=== PATIENT | female | born 1970 | race Two or more races ===

== ENCOUNTER 2016-10-03 09:09 | Emergency (ER) | payer SELFPAY ==
[2016-10-03] MEDS ORDERED: Albuterol/Ipratropium 3.0-0.5 MG/3 ML Neb Soln NEB ONE (09:23)
[2016-10-03] MEDS ORDERED: Sodium Chloride 0.9% 2.5 ML Syringe FLUSH PRN (09:23)
[2016-10-03] MEDS ORDERED: methylPREDNISolone Sodium Succinate 125 MG/2 ML SDV IVPUSH ONE (09:23)
[2016-10-03] MEDS ORDERED: Sodium Chloride 0.9% 10 ML Syringe FLUSH PRN (09:23)
[2016-10-03] MEDS ORDERED: Sodium Chloride 0.9% 1,000 ML IV ONE (09:23)
--- NOTE | 2016-10-03 09:26 | EDM.PDOC ---
ED HPI GENERAL MEDICAL PROBLEM - General Chief Complaint: Respiratory Problem Stated Complaint: SOB Time Seen by Provider: 10/03/16 09:19 - History of Present Illness INITIAL COMMENTS - FREE TEXT/NARRATIVE: HISTORY AND PHYSICAL: History of present illness: Patient is a 46-year-old female with a known history of asthma who says that she 's been having shortness of breath and wheezing for the last 1 week. She has had a cough occasionally productive of some phlegm which is not yellow-green or bloody. She has had no fevers vomiting or diarrhea and intermittently will have some chest discomfort with her breathing. She uses a nebulizer as well as an inhaler and came in today because that didn't seem to work. Her last prednisone use was 7 months ago and she says she has not had an admission to the hospital as an adult. Patient denies and says she gets her periods every month and has no cardiac history. She has no leg pain or swelling. Review of systems: As per history of present illness and below otherwise all systems reviewed and negative. Past medical history: As per history of present illness and as reviewed below otherwise noncontributory. Surgical history: As per history of present illness and as reviewed below otherwise noncontributory. Social history: No reported history of drug or alcohol abuse. Family history: As per history of present illness and as reviewed below otherwise noncontributory. Physical exam: Gen.: Well-developed well-nourished female who is speaking clearly in the ED without breathlessness and vital signs of the note by me HEENT: Atraumatic, normocephalic, pupils reactive, negative for conjunctival pallor or scleral icterus, mucous membranes moist, throat clear, neck supple, nontender, trachea midline. Lungs: Diffuse wheezing bilaterally in all thacker with some minimal abdominal breathing but no intercostal muscle use or sensory muscle use, breath sounds equal bilaterally, chest nontender. Heart: S1S2, regular, negative for clicks, rubs, or JVD. Abdomen: Soft, nondistended, nontender. Negative for masses or hepatosplenomegaly. NABS Pelvis: Stable nontender. Genitourinary: Deferred. Rectal: Deferred. Extremities: Atraumatic, negative for cords or calf pain. Neurovascular unremarkable. No pedal edema or leg asymmetry Neuro: Awake, alert, oriented. Cranial nerves II through XII unremarkable. Cerebellum unremarkable. Motor and sensory unremarkable throughout. Exam nonfocal. Diagnostics: EKG chest x-ray CBC CMP Therapeutics: IV O2 monitor IV fluids duo neb Solu-Medrol Patient is moving air much better with only a fine expiratory wheeze and she feels better. She says she does not have a history of seasonal allergies and I have discussed with her elevated white cell count with the eosinophilic shift. I 've also discussed his lab tests with Dr. Hernández. I will advise close follow-up in the clinic and I will put her on a course of antibiotics along with prednisone and regular inhaler use. The patient will be given a spacer. Advised her on reasons to return to the ER. I've also advised that she take Claritin [id number] Impression: Acute asthma exacerbation with leukocytosis and eosinophilia Definitive disposition and diagnosis as appropriate pending reevaluation and review of above. Upper Back Pain Score (Numeric/FACES): 7 - Related Data Allergies Allergy/AdvReac Type Severity Reaction Status Date / Time No Known Allergies Allergy Verified 10/03/16 09:25 Home Meds: Home Meds Albuterol Sulfate [Proair Hfa] 10/03/16 [History] Albuterol [Proventil Neb Soln] 10/03/16 [History] ED ROS GENERAL - Review of Systems Review Of Systems: ROS reveals no pertinent complaints other than HPI. ED EXAM, GENERAL - Physical Exam Exam: See Below (See dictation) Course - Vital Signs Last Recorded V/S: Last Vital Signs Temp 36.9 C 10/03/16 09:12 Pulse 89 10/03/16 09:12 Resp 24 H 10/03/16 09:12 BP 153/83 H 10/03/16 09:12 Pulse Ox 98 10/03/16 09:12 - Orders/Labs/Meds Orders: Active Orders 24 hr Category Date Time Status Cardiac Monitoring [RC] . DIRECTED Care 10/03/16 09:23 Active EKG Documentation Completion [RC] STAT Care 10/03/16 09:23 Active Oxygen Therapy, ED [RC] ASDIRECTED Care 10/03/16 09:23 Active Pulse Oximetry [RC] ASDIRECTED Care 10/03/16 09:23 Active RT Aerosol Therapy [RC] ASDIRECTED Care 10/03/16 09:23 Active Sodium Chloride 0.9% [Saline Flush] Med 10/03/16 09:23 Active 10 ml FLUSH ASDIRECTED PRN Sodium Chloride 0.9% [Saline Flush] Med 10/03/16 09:23 Active 2.5 ml FLUSH ASDIRECTED PRN Saline Lock Insert [OM.PC] Stat Oth 10/03/16 09:23 Ordered Medication Orders Sodium Chloride (Saline Flush) 10 ml FLUSH ASDIRECTED PRN PRN Reason: Keep Vein Open Sodium Chloride (Saline Flush) 2.5 ml FLUSH ASDIRECTED PRN PRN Reason: Keep Vein Open Labs: Laboratory Tests 10/03/16 10/03/16 Range/Units 09:30 09:30 WBC 18.92 H (4.0-11.0) K/uL RBC 5.04 (4.30-5.90) M/uL Hgb 11.9 L (12.0-16.0) g/dL Hct 36.9 (36.0-46.0) % MCV 73.2 L (80.0-98.0) fL MCH 23.6 L (27.0-32.0) pg MCHC 32.2 (31.0-37.0) g/dL RDW Std Deviation 39.8 (28.0-62.0) fl RDW Coeff of Herb 15 (11.0-15.0) % Plt Count 347 (150-400) K/uL MPV 10.10 (7.40-12.00) fL Neut % (Auto) 47.2 L (48.0-80.0) % Lymph % (Auto) 25.8 (16.0-40.0) % Ballard % (Auto) 5.1 (0.0-15.0) % Eos % (Auto) 21.5 H (0.0-7.0) % Baso % (Auto) 0.4 (0.0-1.5) % Neut # (Auto) 8.9 H (1.4-5.7) K/uL Lymph # (Auto) 4.9 H (0.6-2.4) K/uL Ballard # (Auto) 1.0 H (0.0-0.8) K/uL Eos # (Auto) 4.1 H (0.0-0.7) K/uL Baso # (Auto) 0.1 (0.0-0.1) K/uL Nucleated RBC % 0.0 /100WBC Nucleated RBCs # 0 K/uL Sodium 139 (136-146) mmol/L Potassium 3.6 (3.5-5.1) mmol/L Chloride 108 (98-110) mmol/L Carbon Dioxide 22 (21-31) mmol/L BUN 13 (6.0-23.0) mg/dL Creatinine 0.6 (0.6-1.5) mg/dL Est Cr Clr Drug Dosing 85.94 mL/min Estimated GFR (MDRD) > 60.0 ml/min Glucose 113 H (60-110) mg/dL Calcium 9.0 (8.8-10.8) mg/dL Total Bilirubin 0.3 (0.1-1.5) mg/dL AST 27 (5-40) IU/L ALT 31 (8-54) IU/L Alkaline Phosphatase 89 (40-150) Total Protein 6.8 (6.0-8.0) g/dL Albumin 3.4 L (3.5-5.0) g/dL Globulin 3.4 (2.0-3.5) g/dL Albumin/Globulin Ratio 1.0 L (1.3-2.8) Meds: Medications Generic Name Dose Route Start Last Admin Trade Name Epifanio PRN Reason Stop Dose Admin Sodium Chloride 10 ml 10/03/16 09:23 Saline Flush FLUSH ASDIRECTED PRN Keep Vein Open Sodium Chloride 2.5 ml 10/03/16 09:23 Saline Flush FLUSH ASDIRECTED PRN Keep Vein Open Discontinued Medications Generic Name Dose Route Start Last Admin Trade Name Epifanio PRN Reason Stop Dose Admin Albuterol/Ipratropium 3 ml 10/03/16 09:23 10/03/16 09:36 Duoneb 3.0-0.5 Mg/3 Ml NEB 10/03/16 09:24 3 ml ONETIME ONE Administration Sodium Chloride 1,000 mls @ 999 mls/hr 10/03/16 09:23 10/03/16 10:19 Normal Saline IV 10/03/16 10:23 999 mls/hr STAT ONE Administration Methylprednisolone Sodium Succinate 125 mg 10/03/16 09:23 10/03/16 09:56 Solu-Medrol IVPUSH 10/03/16 09:24 125 mg ONETIME ONE Administration Departure - Departure Time of Disposition: 10:50 Disposition: Home, Self-Care 01 Condition: Good Clinical Impression: Acute asthma exacerbation - Discharge Information Forms: ED Department Discharge Additional Instructions: The following information is given to patients seen in the emergency department who are being discharged to home. This information is to outline your options for follow-up care. We provide all patients seen in our emergency department with a follow-up referral. The need for follow-up, as well as the timing and circumstances, are variable depending upon the specifics of your emergency department visit. If you don't have a primary care physician on staff, we will provide you with a referral. We always advise you to contact your personal physician following an emergency department visit to inform them of the circumstance of the visit and for follow-up with them and/or the need for any referrals to a consulting specialist. The emergency department will also refer you to a specialist when appropriate. This referral assures that you have the opportunity for followup care with a specialist. All of these measure are taken in an effort to provide you with optimal care, which includes your followup. Under all circumstances we always encourage you to contact your private physician who remains a resource for coordinating your care. When calling for followup care, please make the office aware that this follow-up is from your recent emergency room visit. If for any reason you are refused follow-up, please contact the [facility] emergency department at and ask to speak to the emergency department charge nurse. [facility] Primary care- [place] [address] Please push hydration as we discussed and call for a follow-up clinic appointment this week. Please use your inhaler with the spacer you have been given today every 6 hours for the next 2 days and then every 6 hours as needed. Please taken Biaxin until they're finished and take prednisone until it is finished. Return to ER as needed and as discussed. These also start taking an [id number] allergy medication like Claritin or Alisia for the next 2 weeks. - My Orders Last 24 Hours: My Active Orders 10/03/16 09:23 Cardiac Monitoring [RC] . DIRECTED EKG Documentation Completion [RC] STAT Oxygen Therapy, ED [RC] ASDIRECTED Pulse Oximetry [RC] ASDIRECTED RT Aerosol Therapy [RC] ASDIRECTED Sodium Chloride 0.9% [Saline Flush] 10 ml FLUSH ASDIRECTED PRN Sodium Chloride 0.9% [Saline Flush] 2.5 ml FLUSH ASDIRECTED PRN Saline Lock Insert [OM.PC] Stat - Assessment/Plan Last 24 Hours: My Active Orders 10/03/16 09:23 Cardiac Monitoring [RC] . DIRECTED EKG Documentation Completion [RC] STAT Oxygen Therapy, ED [RC] ASDIRECTED Pulse Oximetry [RC] ASDIRECTED RT Aerosol Therapy [RC] ASDIRECTED Sodium Chloride 0.9% [Saline Flush] 10 ml FLUSH ASDIRECTED PRN Sodium Chloride 0.9% [Saline Flush] 2.5 ml FLUSH ASDIRECTED PRN Saline Lock Insert [OM.PC] Stat
[2016-10-03 10:10] LABS: CHLORIDE,CL 108 mmol/L (98-110); SODIUM,NA 139 mmol/L (136-146)
--- NOTE | 2016-10-03 10:24 | CR ---
EXAMINATION: Two-view chest (PA and Lateral views). HISTORY: Tenderness of breath. FINDINGS: The trachea is midline. The cardiomediastinal silhouette is within normal limits. No pulmonary infil trates, effusions or pneumothorax. Mild degenerative changes noted within the thoracic spine. IMPRESSION: No acute cardiopulmonary process.
[2016-10-03 11:48] VITALS: BP 151/71
== END 2016-10-03 11:15 | disposition home or self-care (01) ==
LOC: MW.ED 09:09 → EDBD 09:09 → MW.ED 11:15
DX: J45.901 Unspecified asthma with (acute) exacerbation (principal); D72.1 Eosinophilia
CPT/HCPCS: 36415; 71020; 80053; 85025; 93005; 94664; 96361; 96374; 99285; J2930; J7040; 99284